=== PATIENT | female | born 1955 | race Caucasian/White ===

== ENCOUNTER → 2020-01-18 | Outpatient (CLI) | payer OTHER ==
--- NOTE | 2020-01-18 17:00 | RADIOLOGY REPORT (SQ) ---
EXAM DESCRIPTION: VENOUS UNILATERAL LOWER IMAGES COMPLETED DATE/TIME: 01/18/2020 4:43 pm REASON FOR STUDY: RLE EDEMA, PAIN R60.9 EDEMA, UNSPECIFIED COMPARISON: None. TECHNIQUE: Dynamic and static flores scale and color images acquired of the right leg venous system. S elected spectral images acquired with additional compression and augmentation maneuvers. The contrala teral common femoral vein and saphenofemoral junction were also imaged. Images stored on PACS. LIMITATIONS: None. FINDINGS: COMMON FEMORAL: Normal phasicity, compression and augmentation. No visualized echogenic ma terial on flores scale. No defects on color images. FEMORAL: Normal compression and augmentation. No visualized echogenic material on flores scale. No defe cts on color images. POPLITEAL: Normal compression, augmentation. No visualized echogenic material on flores scale. No defec ts on color images. CALF VESSELS: Normal compression, augmentation. No visualized echogenic material on flores scale. No de fects on color images. GSV and SSV: Normal compression, augmentation. No visualized echogenic material on flores scale. No def ects on color images. ANY DEEP VENOUS INSUFFICIENCY: Not evaluated. ANY EVIDENCE OF POPLITEAL CYST: No. OTHER: No other significant finding. CONTRALATERAL COMMON FEMORAL VEIN AND SAPHENOFEMORAL JUNCTION: Normal phasicity, compression and augmentation. No visualized echogenic material on flores scale. No de fects on color images. IMPRESSION: NO EVIDENCE DVT OR SVT IN THE RIGHT LEG. TECHNICAL DOCUMENTATION: JOB ID: [id number] [employer]- All Rights Reserved Reading location - IP/workstation name: [email or web address]
== END ==
LOC: SP 15:26
PROVIDERS: ATTEND Registered Nurse
DX: R60.9 Edema, unspecified (principal)
CPT/HCPCS: 93971